=== PATIENT | male | born 1960 | race Caucasian/White ===

== ENCOUNTER → 2017-02-02 | Outpatient (CLI) | payer OTHER | END | disposition home or self-care (01) | LOC: MW.CHIM 11:19 | PROVIDERS: ATTEND Internal Medicine | DX: I10 Essential (primary) hypertension (principal); E11.9 Type 2 diabetes mellitus without complications | CPT/HCPCS: 36415; 83036 ==

== ENCOUNTER 2017-05-31 15:51 | Emergency (ER) | payer BC, OTHER ==
[2017-05-31] MEDS ORDERED: Sodium Chloride 0.9% 1,000 ML IV ONE (16:40)
[2017-05-31] MEDS ORDERED: Ondansetron 4 MG/2 ML SDV IVPUSH ONE (16:40)
[2017-05-31] MEDS ORDERED: HYDROmorphone 1 MG/ML Syringe IVPUSH PRN (16:40)
--- NOTE | 2017-05-31 16:49 | EDM.PDOC ---
<Angelo Oconnor - Last Filed: 05/31/17 18:49> ED HPI GENERAL MEDICAL PROBLEM - General Chief Complaint: Abdominal Pain Stated Complaint: ABDOMINAL PAIN Time Seen by Provider: 05/31/17 15:54 - History of Present Illness INITIAL COMMENTS - FREE TEXT/NARRATIVE: HISTORY AND PHYSICAL: History of present illness: This is a 56-year-old male presenting to the emergency department with the chief complaint of left upper quadrant abdominal pain. Patient tells me that it is going on for the last 3 days now. Tells me that the pain is located left upper quadrant and left lower quadrant. He tells me that the pain has been getting worse. Denies any nausea, vomiting. He tells me that he drinks a sixpack a week. He tells me that he still has his gallbladder. Does not have a history of pancreatitis. Review of systems: As per history of present illness and below otherwise all systems reviewed and negative. Past medical history: As per history of present illness and as reviewed below otherwise noncontributory. Surgical history: As per history of present illness and as reviewed below otherwise noncontributory. Social history: occasional alcohol use. Smokes 1 pack per day. Denies recreational drug use. Family history: As per history of present illness and as reviewed below otherwise noncontributory. Physical exam: HEENT: Atraumatic, normocephalic, pupils reactive, negative for conjunctival pallor or scleral icterus, mucous membranes moist, throat clear, neck supple, nontender, trachea midline. Lungs: Clear to auscultation, breath sounds equal bilaterally, chest nontender. Heart: S1S2, regular, negative for clicks, rubs, or JVD. Abdomen: Bowel sounds are present. No hepatosplenomegaly. Negative Vargas sign. No rebound tenderness. Tenderness upon palpation over the left upper quadrant. Extremities: Atraumatic, negative for cords or calf pain. Neurovascular unremarkable. Diagnostics: CBC CMP Troponin Lipase Therapeutics: IV normal saline bolus Impression: Acute pancreatitis Urinary tract infection Plan: Discharge home Tramadol 50 mg every 6 hours when necessary for pain Zofran 4 mg every 6 hours when necessary for nausea Ciprofloxacin 500 mg twice a day 10 days #20 tabs Follow-up with primary care provider Left Abdominal Pain Score (Numeric/FACES): 7 - Related Data Allergies Allergy/AdvReac Type Severity Reaction Status Date / Time venom-honey bee Allergy Swelling Verified 05/31/17 15:56 [bee venom (honey bee)] Home Meds: Home Meds EPINEPHrine [Epipen] 1 injection IM ASDIRECTED PRN 12/03/14 [History] Lisinopril 1 tab PO DAILY 12/03/14 [History] metFORMIN HCl [Metformin HCl] 1,000 mg PO BID 04/06/15 [History] Acetaminophen/HYDROcodone [Pringle 325-10 MG] 1 tab PO Q4H PRN #30 tablet [Rx] Canagliflozin [Invokana] 1 tab PO DAILY 05/31/17 [History] Ciprofloxacin [IJP: Ciprofloxacin HCl] 500 mg PO BID #20 tab 05/31/17 [Rx] Ondansetron [Zofran ODT] 4 mg PO Q8H #20 tab.dis 05/31/17 [Rx] Tamsulosin [Flomax] 1 cap PO BEDTIME 05/31/17 [History] traMADol [Ultram] 50 mg PO Q6H #21 tablet 05/31/17 [Rx] Past Medical History Other HEENT History: 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 Cardiovascular History: Reports: Hypertension Other Respiratory History: 40 yr history of smoking Other Genitourinary History: hx: kidney stones, passed 1 time, lithotripsy on 1 Other Musculoskeletal History: Left Tibia fracture, hx: arthritits to knee, fractures to 4th & 5th metacarpal right hand, 3 finger fractures Other Neuro History: Occasional headaches Psychiatric History: Reports: None Endocrine/Metabolic History: Reports: Diabetes, Type II Other Oncologic History: Excision x 2 to same area Left arm - Infectious Disease History Infectious Disease History: Reports: Chicken Pox - Past Surgical History Other Musculoskeletal Surgeries/Procedures:: Rotator Cuff surgery bilaterally, 1 also a tendon repair Social & Family History - Tobacco Use Smoking Status *Q: Current Every Day Smoker Years of Tobacco use: 40 Packs/Tins Daily: 1 Used Tobacco, but Quit: No Second Hand Smoke Exposure: Yes - Alcohol Use Days Per Week of Alcohol Use: 2 Number of Drinks Per Day: 1 Total Drinks Per Week: 2 - Recreational Drug Use Recreational Drug Use: No Drug Use in Last 12 Months: No ED ROS GENERAL - Review of Systems Review Of Systems: See Below ED EXAM, GI/ABD - Physical Exam Exam: See Below Course - Vital Signs Last Recorded V/S: Last Vital Signs Temp 36.6 C 05/31/17 19:05 Pulse 82 05/31/17 19:05 Resp 16 05/31/17 19:05 BP 135/75 05/31/17 19:05 Pulse Ox 98 05/31/17 19:05 - Orders/Labs/Meds Labs: Laboratory Tests 05/31/17 05/31/17 05/31/17 Range/Units 14:30 14:30 14:30 WBC 11.36 H (4.0-11.0) K/uL RBC 5.58 (4.50-5.90) M/uL Hgb 17.2 H (13.0-17.0) g/dL Hct 50.8 H (38.0-50.0) % MCV 91.0 (80.0-98.0) fL MCH 30.8 (27.0-32.0) pg MCHC 33.9 (31.0-37.0) g/dL RDW Std Deviation 45.9 (28.0-62.0) fl RDW Coeff of Fernanda 14 (11.0-15.0) % Plt Count 243 (150-400) K/uL MPV 9.00 (7.40-12.00) fL Neut % (Auto) 70.3 (48.0-80.0) % Lymph % (Auto) 20.3 (16.0-40.0) % Starke % (Auto) 7.0 (0.0-15.0) % Eos % (Auto) 2.2 (0.0-7.0) % Baso % (Auto) 0.2 (0.0-1.5) % Neut # (Auto) 8.0 H (1.4-5.7) K/uL Lymph # (Auto) 2.3 (0.6-2.4) K/uL Starke # (Auto) 0.8 (0.0-0.8) K/uL Eos # (Auto) 0.3 (0.0-0.7) K/uL Baso # (Auto) 0.0 (0.0-0.1) K/uL Sodium 138 (136-146) mmol/L Potassium 4.6 (3.5-5.1) mmol/L Chloride 106 (98-110) mmol/L Carbon Dioxide 23 (21-31) mmol/L BUN 12 (6.0-23.0) mg/dL Creatinine 1.0 (0.6-1.5) mg/dL Est Cr Clr Drug Dosing 80.75 mL/min Estimated GFR (MDRD) > 60.0 ml/min Glucose 100 (60-110) mg/dL Calcium 10.0 (8.8-10.8) mg/dL Total Bilirubin 0.6 (0.1-1.5) mg/dL AST 27 (5-40) IU/L ALT 24 (8-54) IU/L Alkaline Phosphatase 38 L (40-150) Troponin I < 0.10 (0.0-0.29) NG/ML Total Protein 7.9 (6.0-8.0) g/dL Albumin 4.2 (3.5-5.0) g/dL Globulin 3.7 H (2.0-3.5) g/dL Albumin/Globulin Ratio 1.1 L (1.3-2.8) Lipase 462 H (7-80) U/L Urine Color Urine Appearance Urine pH (5.0-8.0) Ur Specific Helotes (1.001-1.035) Urine Protein (NEGATIVE) mg/dL Urine Glucose (UA) (NEGATIVE) mg/dL Urine Ketones (NEGATIVE) mg/dL Urine Occult Blood (NEGATIVE) Urine Nitrite (NEGATIVE) Urine Bilirubin (NEGATIVE) Urine Urobilinogen (<2.0) EU/dL Ur Leukocyte Esterase (NEGATIVE) Urine RBC (0-2/HPF) Urine WBC (0-5/HPF) Ur Epithelial Cells (NONE-FEW) Urine Bacteria (NEGATIVE) 05/31/17 Range/Units 17:15 WBC (4.0-11.0) K/uL RBC (4.50-5.90) M/uL Hgb (13.0-17.0) g/dL Hct (38.0-50.0) % MCV (80.0-98.0) fL MCH (27.0-32.0) pg MCHC (31.0-37.0) g/dL RDW Std Deviation (28.0-62.0) fl RDW Coeff of Fernanda (11.0-15.0) % Plt Count (150-400) K/uL MPV (7.40-12.00) fL Neut % (Auto) (48.0-80.0) % Lymph % (Auto) (16.0-40.0) % Starke % (Auto) (0.0-15.0) % Eos % (Auto) (0.0-7.0) % Baso % (Auto) (0.0-1.5) % Neut # (Auto) (1.4-5.7) K/uL Lymph # (Auto) (0.6-2.4) K/uL Starke # (Auto) (0.0-0.8) K/uL Eos # (Auto) (0.0-0.7) K/uL Baso # (Auto) (0.0-0.1) K/uL Sodium (136-146) mmol/L Potassium (3.5-5.1) mmol/L Chloride (98-110) mmol/L Carbon Dioxide (21-31) mmol/L BUN (6.0-23.0) mg/dL Creatinine (0.6-1.5) mg/dL Est Cr Clr Drug Dosing mL/min Estimated GFR (MDRD) ml/min Glucose (60-110) mg/dL Calcium (8.8-10.8) mg/dL Total Bilirubin (0.1-1.5) mg/dL AST (5-40) IU/L ALT (8-54) IU/L Alkaline Phosphatase (40-150) Troponin I (0.0-0.29) NG/ML Total Protein (6.0-8.0) g/dL Albumin (3.5-5.0) g/dL Globulin (2.0-3.5) g/dL Albumin/Globulin Ratio (1.3-2.8) Lipase (7-80) U/L Urine Color YELLOW Urine Appearance CLEAR Urine pH 6.0 (5.0-8.0) Ur Specific Helotes 1.025 (1.001-1.035) Urine Protein 100 (NEGATIVE) mg/dL Urine Glucose (UA) >=1000 (NEGATIVE) mg/dL Urine Ketones NEGATIVE (NEGATIVE) mg/dL Urine Occult Blood MODERATE (NEGATIVE) Urine Nitrite NEGATIVE (NEGATIVE) Urine Bilirubin NEGATIVE (NEGATIVE) Urine Urobilinogen 0.2 (<2.0) EU/dL Ur Leukocyte Esterase NEGATIVE (NEGATIVE) Urine RBC 3-5 (0-2/HPF) Urine WBC 20-25 (0-5/HPF) Ur Epithelial Cells FEW (NONE-FEW) Urine Bacteria FEW (NEGATIVE) Meds: Medications Discontinued Medications Generic Name Dose Route Start Last Admin Trade Name Freq PRN Reason Stop Dose Admin Hydromorphone HCl 0.5 mg 05/31/17 16:40 05/31/17 17:07 Dilaudid IVPUSH 0.5 mg Q1H PRN Administration Pain Sodium Chloride 1,000 mls @ 999 mls/hr 05/31/17 16:40 05/31/17 17:08 Normal Saline IV 05/31/17 17:40 999 mls/hr .Bolus ONE Administration Iopamidol 100 ml 05/31/17 17:54 05/31/17 18:00 Isovue-370 (76%) IVPUSH 05/31/17 17:55 100 ml ONETIME STA Administration Ondansetron HCl 4 mg 05/31/17 16:40 05/31/17 17:07 Zofran IVPUSH 05/31/17 16:41 4 mg ONETIME ONE Administration Departure - Departure Time of Disposition: 18:49 Disposition: Home, Self-Care 01 Condition: Good Clinical Impression: Pancreatitis - Discharge Information Prescriptions: Ciprofloxacin [IJP: Ciprofloxacin HCl] 500 mg PO BID #20 tab Ondansetron [Zofran ODT] 4 mg PO Q8H #20 tab.dis traMADol [Ultram] 50 mg PO Q6H #21 tablet Instructions: Acute Pancreatitis, [id number] Referrals: PCP,None [Primary Care Provider] - Forms: ED Department Discharge Additional Instructions: The following information is given to patients seen in the emergency department who are being discharged to home. This information is to outline your options for follow-up care. We provide all patients seen in our emergency department with a follow-up referral. The need for follow-up, as well as the timing and circumstances, are variable depending upon the specifics of your emergency department visit. If you don't have a primary care physician on staff, we will provide you with a referral. We always advise you to contact your personal physician following an emergency department visit to inform them of the circumstance of the visit and for follow-up with them and/or the need for any referrals to a consulting specialist. The emergency department will also refer you to a specialist when appropriate. This referral assures that you have the opportunity for follow-up care with a specialist. All of these measure are taken in an effort to provide you with optimal care, which includes your follow-up. Under all circumstances we always encourage you to contact your private physician who remains a resource for coordinating your care. When calling for follow-up care, please make the office aware that this follow-up is from your recent emergency room visit. If for any reason you are refused follow-up, please contact the [facility] Emergency Department at and asked to speak to the emergency department charge nurse. At today's visit you were found to have acute pancreatitis. This can be secondary likely to alcohol use. Please refrain from drinking any more alcohol. If you experience any nausea, vomiting or worsening abdominal pain, please seek further medical attention. Please take prescriptions as prescribed. Please follow up with your primary care provider within the next week. <Abbie Coleman - Last Filed: 07/04/17 07:10> ED HPI GENERAL MEDICAL PROBLEM - History of Present Illness INITIAL COMMENTS - FREE TEXT/NARRATIVE: I have seen and discussed this patient and agree with above.
[2017-05-31 17:10] LABS: CHLORIDE,CL 106 mmol/L (98-110); SODIUM,NA 138 mmol/L (136-146)
[2017-05-31] MEDS ORDERED: Iopamidol 755 Mg/ML 100 ML Bottle IVPUSH STA (17:54)
[2017-05-31 19:07] VITALS: BP 135/75
--- NOTE | 2017-06-01 13:32 | CT ---
EXAM DATE: 05/31/17 PATIENT'S AGE: 56 Patient: ALLYSON PHILLIPS Facility: [place], [place] Site . Site : [id number] Study: CT Abdomen/Pelvis [id number]/16/2017 6:12:25 PM Ordering Physician: Elvin Stephens Final Report: HISTORY: Elevated lipase, abdomen pain. TECHNIQUE: The abdomen and pelvis were scanned using helical technique at 3 mm intervals after 100 cc of Isovue-370. Sagittal and coronal reconstructions were performed. COMPARISON: 07 October 2015. FINDINGS: Lung bases: Stable 5 mm subpleural nodule in the lingula image 5. Liver and gallbladder: The liver parenchyma is homogeneous. No calcified gallstones. Spleen, pancreas and adrenal glands: Spleen is normal in size and homogeneous in appearance. Pancreatic parenchyma is homogeneous. There is mild fat stranding around the distal pancreatic body and pancreatic tail. No abnormal fluid collection is seen. Adrenal glands are normal. Kidneys and bladder: Symmetric nephrograms. No hydronephrosis. Mid pole left kidney has a 1.2 cm cyst. The bladder is incompletely distended with diffuse wall thickening. Anteriorly this measures 9 mm. Retroperitoneum and lymph nodes: The abdominal aorta is normal in caliber. No pathologic periaortic lymphadenopathy is seen. GI tract: The stomach is mildly distended. No dilated small bowel loops are seen. The appendix is normal. Stool and gas are seen throughout the colon. No evidence of diverticulitis. No free air in the abdomen. There is no free fluid the pelvis. Pelvic organs: Prostate is generous in size. Osseous structures: No suspicious lytic or blastic bone lesions are seen. IMPRESSION: 1. Stable 5 mm lingular nodule. 2. There is some streaky peripancreatic fat stranding consistent with acute pancreatitis. No pseudocyst or phlegmon seen. 3. Stable 1.2 cm left renal cyst. 4. Mild diffuse bladder wall thickening. This is not significantly changed compared to prior exam. Dictated by Namita Nash MD @ 05/31/2017 6:34:18 PM Dictated by: Namita Nash MD @ 05/31/2017 18:36:08 (Electronic Signature) Report Signed by Proxy. [facility] HOSPITALBrad
== END 2017-05-31 19:05 | disposition home or self-care (01) ==
LOC: MW.ED 15:51
DX: K85.90 Acute pancreatitis without necrosis or infection, unspecified (principal); N39.0 Urinary tract infection, site not specified; I10 Essential (primary) hypertension; E11.9 Type 2 diabetes mellitus without complications; F17.210 Nicotine dependence, cigarettes, uncomplicated; Z98.890 Other specified postprocedural states; Z87.442 Personal history of urinary calculi; Z79.84 Long term (current) use of oral hypoglycemic drugs; Z79.899 Other long term (current) drug therapy; Z91.030 Bee allergy status
CPT/HCPCS: 36415; 74177; 80053; 81001; 83690; 84484; 85025; 96361; 96374; 96375; 99284; J1170; J2405; J7040; Q9967

== ENCOUNTER 2019-11-22 10:17 | Emergency (ER) | payer BC ==
[2019-11-22 10:34] VITALS: PULSE 100
--- NOTE | 2019-11-22 10:39 | EDM.PDOC ---
ED HPI GENERAL MEDICAL PROBLEM - General Chief Complaint: Respiratory Problem Stated Complaint: SOB, COLD SYMPTOMS Time Seen by Provider: 11/22/19 10:21 Source of Information: Reports: Patient History Limitations: Reports: No Limitations - History of Present Illness INITIAL COMMENTS - FREE TEXT/NARRATIVE: HISTORY AND PHYSICAL: History of present illness: Patient is a 58-year-old male who presents to the emergency room today with complaints of cough, chest congestion, subjective fever and body aches. patient states "the last time he had this I needed him steroids". he denies any recent exposures to anyone who has been ill. Denies any recent travel. Patient denies any headache, change in vision, syncope or near syncope. Denies any chest pain, back pain, shortness of breath. Denies any GI or symptoms. Patient has been eating and drinking appropriately. Review of systems: As per history of present illness and below otherwise all systems reviewed and negative. Past medical history: As per history of present illness and as reviewed below otherwise noncontributory. Surgical history: As per history of present illness and as reviewed below otherwise noncontributory. Social history: See social history for further information Family history: As per history of present illness and as reviewed below otherwise noncontributory. Physical exam: General: Well developed and well-nourished 58-year-old male. Alert nd oriented. Nontoxic appearing and in no acute distress. HEENT: Atraumatic, normocephalic, pupils equal and reactive bilaterally, negative for conjunctival pallor or scleral icterus, mucous membranes moist, TMs normal bilaterally, throat clear, neck supple, nontender, trachea midline. No drooling or trismus noted. No meningeal signs. No hot potato voice noted. Lungs: Fine expiratory wheezing LLL, diminished bases otherwise clear to auscultation, breath sounds equal bilaterally, chest nontender. Heart: S1S2, regular rate and rhythm without overt murmur Abdomen: Soft, nondistended, nontender. Negative for masses or hepatosplenomegaly. Negative for costovertebral tenderness. Skin: Intact, warm, dry. No lesions or rashes noted. Extremities: Atraumatic, moves all extremities per self without difficulty or deficits, negative for cords or calf pain. Neurovascular unremarkable. Neuro: Awake, alert, oriented. Cranial nerves II through XII unremarkable. Cerebellum unremarkable. Motor and sensory unremarkable throughout. Exam nonfocal. Notes: VSS. CXR shows an increased density in the left lung base, suspicious of pneumonia. Spoke with patient about observation admission due to sats being 93% ; he declines stating he wants to proceed without outpatient antibiotics. We discussed signs and symptoms that would prompt him to return to the ED. Medication and supportive care measures were reviewed and discussed. Voices understanding and is agreeable to plan of care. Denies any further questions or concerns at this time. Diagnostics: Influenza, CXR Therapeutics: Brian Murrell Prescription: Doxycycline, Zpak and Medrol Dosepak Impression: Pneumonia, left lower lobe Plan: 1. Stop smoking. 2. Take your medications as prescribed. 3. Follow up with your primary care provider as we discussed. Return to the ED as needed as discussed. Definitive disposition and diagnosis as appropriate pending reevaluation and review of above. Headache Pain Score (Numeric/FACES): 7 - Related Data Allergies Allergy/AdvReac Type Severity Reaction Status Date / Time venom-honey bee Allergy Swelling Verified 11/22/19 10:34 [bee venom (honey bee)] Home Meds: Home Meds EPINEPHrine [Epipen] 1 injection IM ASDIRECTED PRN 12/03/14 [History] Lisinopril 1 tab PO DAILY 12/03/14 [History] metFORMIN HCl [Metformin HCl] 1,000 mg PO BID 04/06/15 [History] Tamsulosin [Flomax] 1 cap PO BEDTIME 05/31/17 [History] Azithromycin [Zithromax] 1 dose PO DAILY 5 Days #6 tab 11/22/19 [Rx] Doxycycline [Vibramycin] 100 mg PO BID 7 Days #14 tab 11/22/19 [Rx] Dulaglutide [Trulicity] 1 dose INJECT ASDIRECTED 11/22/19 [History] Empagliflozin [Jardiance] 1 dose PO ACBREAKFAST 11/22/19 [History] methylPREDNISolone [Medrol] 1 dose PO DAILY 6 Days #1 dospk 11/22/19 [Rx] Past Medical History Other HEENT History: 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 Cardiovascular History: Reports: Hypertension Other Respiratory History: 40 yr history of smoking Other Genitourinary History: hx: kidney stones, passed 1 time, lithotripsy on 1 Other Musculoskeletal History: Left Tibia fracture, hx: arthritits to knee, fractures to 4th & 5th metacarpal right hand, 3 finger fractures Other Neuro History: Occasional headaches Psychiatric History: Reports: None Endocrine/Metabolic History: Reports: Diabetes, Type II Other Oncologic History: Excision x 2 to same area Left arm - Infectious Disease History Infectious Disease History: Reports: Chicken Pox - Past Surgical History Other Musculoskeletal Surgeries/Procedures:: Rotator Cuff surgery bilaterally, 1 also a tendon repair ED ROS GENERAL - Review of Systems Review Of Systems: Comprehensive ROS is negative, except as noted in HPI. ED EXAM, GENERAL - Physical Exam Exam: See Below (See dictation) Course - Vital Signs Last Recorded V/S: Last Vital Signs Temp 98.3 F 11/22/19 12:10 Pulse 100 11/22/19 11:30 Resp 15 11/22/19 12:10 BP 105/71 11/22/19 12:10 Pulse Ox 93 L 11/22/19 12:10 - Orders/Labs/Meds Orders: Active Orders 24 hr Category Date Time Status RT Aerosol Therapy [RC] ASDIRECTED Care 11/22/19 10:41 Active Meds: Medications Discontinued Medications Generic Name Dose Route Start Last Admin Trade Name Freq PRN Reason Stop Dose Admin Albuterol/Ipratropium 3 ml 11/22/19 10:41 11/22/19 10:46 Duoneb 3.0-0.5 Mg/3 Ml NEB 11/22/19 10:42 3 ml ONETIME ONE Administration Departure - Departure Time of Disposition: 16:43 Disposition: Home, Self-Care 01 Clinical Impression: Pneumonia Qualifiers: Pneumonia type: due to unspecified organism Laterality: left Lung location: lower lobe of lung Qualified Code(s): J18.9 - Pneumonia, unspecified organism - Discharge Information Prescriptions: Azithromycin [Zithromax] 1 dose PO DAILY 5 Days #6 tab Doxycycline [Vibramycin] 100 mg PO BID 7 Days #14 tab methylPREDNISolone [Medrol] 1 dose PO DAILY 6 Days #1 dospk Instructions: Acute Bronchitis, Adult, [id number] Referrals: Oren Vieira MD [Primary Care Provider] - Forms: ED Department Discharge Additional Instructions: The following information is given to patients seen in the emergency department who are being discharged to home. This information is to outline your options for follow-up care. We provide all patients seen in our emergency department with a follow-up referral. The need for follow-up, as well as the timing and circumstances, are variable depending upon the specifics of your emergency department visit. If you don't have a primary care physician on staff, we will provide you with a referral. We always advise you to contact your personal physician following an emergency department visit to inform them of the circumstance of the visit and for follow-up with them and/or the need for any referrals to a consulting specialist. The emergency department will also refer you to a specialist when appropriate. This referral assures that you have the opportunity for follow-up care with a specialist. All of these measure are taken in an effort to provide you with optimal care, which includes your follow-up. Under all circumstances we always encourage you to contact your private physician who remains a resource for coordinating your care. When calling for follow-up care, please make the office aware that this follow-up is from your recent emergency room visit. If for any reason you are refused follow-up, please contact the [facility] Emergency Department at and asked to speak to the emergency department charge nurse. [facility] Primary Care [address] [place] [address] [place] [address] 1. Stop smoking. 2. Take your medications as prescribed. 3. Follow up with your primary care provider as we discussed. Return to the ED as needed as discussed. Sepsis Event Note - Evaluation Sepsis Screening Result: No Definite Risk - Focused Exam Vital Signs: Vital Signs Temp Pulse Resp BP Pulse Ox 11/22/19 12:10 98.3 F 15 105/71 93 L 11/22/19 11:30 98.3 F 100 20 106/65 96 11/22/19 10:32 97.7 F 100 18 128/83 94 L 11/22/19 10:20 98.6 F 97 20 118/64 92 L Date Exam was Performed: 11/22/19 Time Exam was Performed: 16:40 - My Orders Last 24 Hours: My Active Orders 11/22/19 10:41 RT Aerosol Therapy [RC] ASDIRECTED - Assessment/Plan Last 24 Hours: My Active Orders 11/22/19 10:41 RT Aerosol Therapy [RC] ASDIRECTED
[2019-11-22] MEDS ORDERED: Albuterol/Ipratropium 3.0-0.5 MG/3 ML Neb Soln NEB ONE (10:41)
[2019-11-22 12:24] VITALS: BP 105/71
--- NOTE | 2019-11-22 13:17 | CR ---
Pelvis: 2 views of the chest were obtained. Comparison: No prior chest imaging. Increased density is noted within the left lung base. Left upper right lung are clear. Heart size and mediastinum are normal. Bony structures appear within normal limits for the patient's age. Impression: 1. Increased density within the left lung base either due to early pneumonia or focal bronchitis. 2. No other acute finding is seen on 2 view chest x-ray. Diagnostic code #3 This report was dictated in Mountain Standard Time
== END 2019-11-22 12:20 | disposition home or self-care (01) ==
LOC: MW.ED 10:17
DX: J18.9 Pneumonia, unspecified organism (principal); E11.9 Type 2 diabetes mellitus without complications; I10 Essential (primary) hypertension; Z79.84 Long term (current) use of oral hypoglycemic drugs; Z91.030 Bee allergy status
CPT/HCPCS: 71046; 71046-26; 87804; 94640; 99283; 99284-25; J7620-GY

== ENCOUNTER 2019-11-28 07:31 | Emergency (ER) | payer BC ==
--- NOTE | 2019-11-28 07:47 | EDM.PDOC ---
ED HPI GENERAL MEDICAL PROBLEM - General Chief Complaint: Respiratory Problem Stated Complaint: COUGHING Time Seen by Provider: 11/28/19 07:47 Source of Information: Reports: Patient History Limitations: Reports: No Limitations - History of Present Illness INITIAL COMMENTS - FREE TEXT/NARRATIVE: Patient is a 58-year-old male who is complaining of having cough with shortness of breath which is gotten worse over the last several days. Patient been having upper respiratory symptoms for the past month and was seen approximately 2 weeks ago and started on doxycycline and azithromycin and prednisone. Patient is currently not feeling better and states he gets dyspneic on mild exertion. He denies any fever chills, nausea vomiting diarrhea. Patient denies any swelling to his calves or ankles. Patient is a cigarette smoker. He denies any sputum. Patient has had bronchitis and pneumonia in the past. Patient has a Combivent inhaler at home. Duration: Day(s): (2 days), Getting Worse Location: Reports: Chest Severity: Moderate Improves with: Reports: None Worsens with: Reports: Breathing, Cold Therapy Associated Symptoms: Reports: Chest Pain, Cough, Shortness of Breath. Denies: Diaphoresis, Nausea/Vomiting Chest Pain Score (Numeric/FACES): 5 - Related Data Allergies Allergy/AdvReac Type Severity Reaction Status Date / Time venom-honey bee Allergy Swelling Verified 11/22/19 10:34 [bee venom (honey bee)] Home Meds: Home Meds EPINEPHrine [Epipen] 1 injection IM ASDIRECTED PRN 12/03/14 [History] Lisinopril 1 tab PO DAILY 12/03/14 [History] metFORMIN HCl [Metformin HCl] 1,000 mg PO BID 04/06/15 [History] Tamsulosin [Flomax] 1 cap PO BEDTIME 05/31/17 [History] Azithromycin [Zithromax] 1 dose PO DAILY 5 Days #6 tab 11/22/19 [Rx] Doxycycline [Vibramycin] 100 mg PO BID 7 Days #14 tab 11/22/19 [Rx] Dulaglutide [Trulicity] 1 dose INJECT ASDIRECTED 11/22/19 [History] Empagliflozin [Jardiance] 1 dose PO ACBREAKFAST 11/22/19 [History] methylPREDNISolone [Medrol] 1 dose PO DAILY 6 Days #1 dospk 11/22/19 [Rx] Past Medical History HEENT History: Reports: Other (See Below) Other HEENT History: 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 Cardiovascular History: Reports: Hypertension Respiratory History: Reports: None Other Respiratory History: 40 yr history of smoking Gastrointestinal History: Reports: None Genitourinary History: Reports: Renal Calculus Other Genitourinary History: hx: kidney stones, passed 1 time, lithotripsy on 1 Musculoskeletal History: Reports: Other (See Below) Other Musculoskeletal History: Left Tibia fracture, hx: arthritits to knee, fractures to 4th & 5th metacarpal right hand, 3 finger fractures Other Neuro History: Occasional headaches Psychiatric History: Reports: None Endocrine/Metabolic History: Reports: Diabetes, Type II Hematologic History: Reports: None Immunologic History: Reports: None Oncologic (Cancer) History: Reports: Other (See Below) Other Oncologic History: Excision x 2 to same area Left arm Dermatologic History: Reports: None - Infectious Disease History Infectious Disease History: Reports: Chicken Pox - Past Surgical History Other Musculoskeletal Surgeries/Procedures:: Rotator Cuff surgery bilaterally, 1 also a tendon repair Social & Family History - Family History Family Medical History: Noncontributory - Caffeine Use Caffeine Use: Reports: Soda ED ROS GENERAL - Review of Systems Review Of Systems: Comprehensive ROS is negative, except as noted in HPI. ED EXAM, GENERAL - Physical Exam Exam: See Below General Appearance: Alert, No Apparent Distress Head: Atraumatic Neck: Normal Inspection, Supple Respiratory/Chest: Respiratory Distress, Rhonchi. No: Decreased Breath Sounds, Accessory Muscle Use, Prolonged Expiration Cardiovascular: Regular Rate, Rhythm, No Edema, No JVD GI/Abdominal: Soft, Non-Tender, No Distention Back Exam: Full Range of Motion Extremities: Normal Inspection, No Pedal Edema Neurological: Alert, Oriented Psychiatric: Normal Affect Skin Exam: Warm, Dry, Normal Color Course - Vital Signs Text/Narrative:: Patient has a mildly elevated d-dimer and his CTA of the chest shows him to have no pulmonary embolus but he does have an area on the left lower lung that is unclear showing some's fibrosis or possibly early infiltrate. His white blood cell count is normal. His d-dimer is mildly elevated. Patient is feeling better with his breathing treatment. With exertion he is satting 93 to 95% and not having any exertional dyspnea. Patient feels well enough to go home. He has only 1 more day left of his antibiotics and I will start him on some Levaquin and give him some Robitussin-AC. He is to return to ER symptoms are worse or not improving and follow-up with his PCP next week for recheck. Last Recorded V/S: Last Vital Signs Temp 36.9 C 11/28/19 08:00 Pulse 94 11/28/19 09:43 Resp 18 11/28/19 08:00 BP 127/74 11/28/19 09:43 Pulse Ox 96 11/28/19 09:43 - Orders/Labs/Meds Orders: Active Orders 24 hr Category Date Time Status RT Aerosol Therapy [RC] ASDIRECTED Care 11/28/19 07:55 Active Labs: Laboratory Tests 11/28/19 11/28/19 11/28/19 Range/Units 08:35 08:35 08:35 WBC 6.77 (4.0-11.0) K/uL RBC 4.94 (4.50-5.90) M/uL Hgb 15.4 (13.0-17.0) g/dL Hct 44.3 (38.0-50.0) % MCV 89.7 (80.0-98.0) fL MCH 31.2 (27.0-32.0) pg MCHC 34.8 (31.0-37.0) g/dL RDW Std Deviation 39.7 (28.0-62.0) fl RDW Coeff of Fernanda 12 (11.0-15.0) % Plt Count 155 (150-400) K/uL MPV 9.30 (7.40-12.00) fL Neut % (Auto) 82.2 H (48.0-80.0) % Lymph % (Auto) 6.6 L (16.0-40.0) % [place] % (Auto) 10.8 (0.0-15.0) % Eos % (Auto) 0.3 (0.0-7.0) % Baso % (Auto) 0.1 (0.0-1.5) % Neut # (Auto) 5.6 (1.4-5.7) K/uL Lymph # (Auto) 0.5 L (0.6-2.4) K/uL [place] # (Auto) 0.7 (0.0-0.8) K/uL Eos # (Auto) 0.0 (0.0-0.7) K/uL Baso # (Auto) 0.0 (0.0-0.1) K/uL Nucleated RBC % 0.0 /100WBC Nucleated RBCs # 0 K/uL D-Dimer, Quantitative 0.62 H (0.0-0.50) mg/L FEU Lactate (0.20-2.00) mmol/L Sodium 132 L (136-148) mmol/L Potassium 4.1 (3.5-5.1) mmol/L Chloride 98 (98-107) mmol/L Carbon Dioxide 24.8 (21.0-32.0) mmol/L BUN 17 (7.0-18.0) mg/dL Creatinine 1.2 (0.8-1.3) mg/dL Est Cr Clr Drug Dosing 65.71 mL/min Estimated GFR (MDRD) > 60.0 ml/min Glucose 405 H (74-106) mg/dL Calcium 8.6 (8.5-10.1) mg/dL Total Bilirubin 0.3 (0.2-1.0) mg/dL AST 39 H (15-37) IU/L ALT 45 (14-63) IU/L Alkaline Phosphatase 96 (46-116) U/L Total Protein 6.9 (6.4-8.2) g/dL Albumin 2.9 L (3.4-5.0) g/dL Globulin 4.0 (2.6-4.0) g/dL Albumin/Globulin Ratio 0.7 L (0.9-1.6) 11/28/19 Range/Units 08:35 WBC (4.0-11.0) K/uL RBC (4.50-5.90) M/uL Hgb (13.0-17.0) g/dL Hct (38.0-50.0) % MCV (80.0-98.0) fL MCH (27.0-32.0) pg MCHC (31.0-37.0) g/dL RDW Std Deviation (28.0-62.0) fl RDW Coeff of Fernanda (11.0-15.0) % Plt Count (150-400) K/uL MPV (7.40-12.00) fL Neut % (Auto) (48.0-80.0) % Lymph % (Auto) (16.0-40.0) % [place] % (Auto) (0.0-15.0) % Eos % (Auto) (0.0-7.0) % Baso % (Auto) (0.0-1.5) % Neut # (Auto) (1.4-5.7) K/uL Lymph # (Auto) (0.6-2.4) K/uL [place] # (Auto) (0.0-0.8) K/uL Eos # (Auto) (0.0-0.7) K/uL Baso # (Auto) (0.0-0.1) K/uL Nucleated RBC % /100WBC Nucleated RBCs # K/uL D-Dimer, Quantitative (0.0-0.50) mg/L FEU Lactate 2.2 H* (0.20-2.00) mmol/L Sodium (136-148) mmol/L Potassium (3.5-5.1) mmol/L Chloride (98-107) mmol/L Carbon Dioxide (21.0-32.0) mmol/L BUN (7.0-18.0) mg/dL Creatinine (0.8-1.3) mg/dL Est Cr Clr Drug Dosing mL/min Estimated GFR (MDRD) ml/min Glucose (74-106) mg/dL Calcium (8.5-10.1) mg/dL Total Bilirubin (0.2-1.0) mg/dL AST (15-37) IU/L ALT (14-63) IU/L Alkaline Phosphatase (46-116) U/L Total Protein (6.4-8.2) g/dL Albumin (3.4-5.0) g/dL Globulin (2.6-4.0) g/dL Albumin/Globulin Ratio (0.9-1.6) Meds: Medications Discontinued Medications Generic Name Dose Route Start Last Admin Trade Name Freq PRN Reason Stop Dose Admin Albuterol/Ipratropium 3 ml 11/28/19 07:54 11/28/19 08:35 Duoneb 3.0-0.5 Mg/3 Ml NEB 11/28/19 07:55 3 ml ONETIME ONE Administration Guaifenesin/Codeine Phosphate 10 ml 11/28/19 07:54 11/28/19 09:13 Robitussin Ac PO 11/28/19 07:55 10 ml ONETIME ONE Administration Sodium Chloride 1,000 mls @ 999 mls/hr 11/28/19 07:54 11/28/19 08:35 Normal Saline IV 11/28/19 08:54 999 mls/hr .BOLUS ONE Administration Sodium Chloride 1,000 mls @ 999 mls/hr 11/28/19 10:06 11/28/19 10:30 Normal Saline IV 11/28/19 11:06 999 mls/hr .BOLUS ONE Administration Iopamidol 50 ml 11/28/19 10:23 11/28/19 10:23 Isovue Multipack-370 (76%) IVPUSH 11/28/19 10:24 50 ml ONETIME STA Administration Prednisone 60 mg 11/28/19 07:54 11/28/19 08:36 Prednisone PO 11/28/19 07:55 60 mg ONETIME ONE Administration Departure - Departure Time of Disposition: 11:33 Disposition: Home, Self-Care 01 Condition: Good Clinical Impression: Pneumonia involving left lung - Discharge Information Instructions: Steps to Quit Smoking, [id number], Community-Acquired Pneumonia , Adult Referrals: PCP,None [Primary Care Provider] - Forms: ED Department Discharge Additional Instructions: Return to emergency department if symptoms are worse. Follow-up with PCP next week for recheck. With smoking cigarettes. [place]'s as prescribed. Care Plan Goals: The following information is given to patients seen in the emergency department who are being discharged to home. This information is to outline your options for follow-up care. We provide all patients seen in our emergency department with a follow-up referral. The need for follow-up, as well as the timing and circumstances, are variable depending upon the specifics of your emergency department visit. If you don't have a primary care physician on staff, we will provide you with a referral. We always advise you to contact your personal physician following an emergency department visit to inform them of the circumstance of the visit and for follow-up with them and/or the need for any referrals to a consulting specialist. The emergency department will also refer you to a specialist when appropriate. This referral assures that you have the opportunity for follow-up care with a specialist. All of these measure are taken in an effort to provide you with optimal care, which includes your follow-up. Under all circumstances we always encourage you to contact your private physician who remains a resource for coordinating your care. When calling for follow-up care, please make the office aware that this follow-up is from your recent emergency room visit. If for any reason you are refused follow-up, please contact the Emergency Department at and asked to speak to the emergency department charge nurse. Sepsis Event Note - Focused Exam Vital Signs: Vital Signs Temp Pulse Resp BP Pulse Ox 11/28/19 09:43 94 127/74 96 11/28/19 08:00 36.9 C 87 18 133/77 96 Date Exam was Performed: 11/28/19 Time Exam was Performed: 11:27 - My Orders Last 24 Hours: My Active Orders 11/28/19 07:55 RT Aerosol Therapy [RC] ASDIRECTED - Assessment/Plan Last 24 Hours: My Active Orders 11/28/19 07:55 RT Aerosol Therapy [RC] ASDIRECTED
[2019-11-28] MEDS ORDERED: predniSONE 20 MG Tab PO ONE (07:54)
[2019-11-28] MEDS ORDERED: Sodium Chloride 0.9% 1,000 ML IV ONE ×2 (07:54→10:06)
[2019-11-28] MEDS ORDERED: Albuterol/Ipratropium 3.0-0.5 MG/3 ML Neb Soln NEB ONE (07:54)
[2019-11-28] MEDS ORDERED: Codeine/guaiFENesin 100-10 MG/5 ML Syrup 5 ML Cup PO ONE (07:54)
[2019-11-28 09:18] LABS: BLOOD UREA NITROGEN,BUN 17 mg/dL (7.0-18.0); CARBON DIOXIDE,CO2 24.8 mmol/L (21.0-32.0); CHLORIDE,CL 98 mmol/L (98-107); GLUCOSE RANDOM 405 mg/dL (74-106); POTASSIUM,K 4.1 mmol/L (3.5-5.1); SODIUM,NA 132 mmol/L (136-148)
--- NOTE | 2019-11-28 09:21 | CR ---
Chest: 2 views of the chest were obtained. Comparison: No prior chest x-ray. Heart size and mediastinum are normal. Basilar interstitial change is noted most likely representing slight fibrosis. Lungs otherwise are clear. Bony structures are unremarkable. Impression: 1. Probable mild basilar fibrosis. 2. Nothing acute is suspected. Diagnostic code #2 Study was dictated in [place] Standard Time
[2019-11-28] MEDS ORDERED: Iopamidol 755 MG/ML 500 ML Multipack Bottle IVPUSH STA (10:23)
--- NOTE | 2019-11-28 10:46 | CT ---
CT chest Technique: Multiple axial sections were obtained from above the lung apices inferiorly through the lung bases. Intravenous contrast was utilized. Study has been performed as a pulmonary angiogram protocol. Findings: Pulmonary arteries are well opacified. No filling defects are seen to indicate pulmonary embolism. Aorta shows no aneurysm. Multiple lymph nodes are seen within the mediastinum and hilar regions. Lymph nodes appears somewhat more numerous than usually seen but do not appear to be overly enlarged and may represent previous inflammatory process. Follow-up will be recommended. Coronary artery calcification is seen. No pericardial thickening is seen. No axillary adenopathy is noted. Reticulonodular appearance is noted within the left lung base. Lungs otherwise are clear. Bone window settings were reviewed which shows slight degenerative spurring within the spine. No acute osseous finding is seen. Impression: 1. No findings of pulmonary embolism. 2. Slightly increased number of mediastinal lymph nodes. This may relate to old inflammatory process but recommend follow-up contrast-enhanced chest CT in 4 months to confirm stability. This follow-up would occur in March,. 3. Reticulonodular appearance within the left lung base. Findings could represent fibrosis but please correlate if patient could have any symptoms of bronchopneumonia. 3. Coronary artery calcification. Diagnostic code #3 This report was dictated in [place] Standard Time
[2019-11-28 12:18] VITALS: BP 128/70; PULSE 87
== END 2019-11-28 12:06 | disposition home or self-care (01) ==
LOC: MW.ED 07:31
DX: J18.9 Pneumonia, unspecified organism (principal); I10 Essential (primary) hypertension; E11.9 Type 2 diabetes mellitus without complications; Z91.030 Bee allergy status; Z79.899 Other long term (current) drug therapy; Z79.84 Long term (current) use of oral hypoglycemic drugs; Z87.442 Personal history of urinary calculi
CPT/HCPCS: 36415; 71046; 71275; 80053; 83605; 85025; 85379; 96360; 96361; 99285; A9270; J7030; Q9967; 99284; J7620-GY

== ENCOUNTER 2022-09-19 10:05 | Emergency (ER) | payer BC ==
[2022-09-19] MEDS ORDERED: Ketorolac 60 MG/2 ML SDV IM ONE (10:37)
[2022-09-19] MEDS ORDERED: Sodium Chloride 0.9% 2.5 ML Syringe FLUSH PRN (10:37)
[2022-09-19] MEDS ORDERED: Sodium Chloride 0.9% 1,000 ML IV ONE ×2 (10:37→11:27)
[2022-09-19] MEDS ORDERED: Sodium Chloride 0.9% 10 ML Syringe FLUSH PRN (10:37)
[2022-09-19] MEDS ORDERED: Ketorolac 60 MG/2 ML SDV IVPUSH ONE (10:45)
[2022-09-19 11:16] LABS: CORONAVIRUS COVID-19 NAA NEGATIVE (NEGATIVE); INFLUENZA A NAA NEGATIVE (NEGATIVE); INFLUENZA B NAA NEGATIVE (NEGATIVE)
[2022-09-19 11:58] LABS: CARBON DIOXIDE,CO2 25.1 mmol/L (21.0-32.0)
[2022-09-19 14:13] VITALS: BP 123/83; PULSE 95
== END 2022-09-19 14:13 | disposition home or self-care (01) ==
LOC: MW.ED 10:05
DX: J06.9 Acute upper respiratory infection, unspecified (principal); I10 Essential (primary) hypertension; E11.9 Type 2 diabetes mellitus without complications; R00.0 Tachycardia, unspecified; Z72.0 Tobacco use; Z91.030 Bee allergy status; Z79.899 Other long term (current) drug therapy; Z20.822 Contact with and (suspected) exposure to COVID-19
CPT/HCPCS: 0240U; 36415; 71045; 80053; 83605; 84484; 85025; 85610; 87040; 93005; 96361; 96374; 99284; J1885; J3490; J7030